=== PATIENT | female | born 1990 | race Caucasian/White ===

== ENCOUNTER 2017-10-23 21:04 | Emergency (ER) | payer MEDICAID ==
[~2017-10-23] VITALS: Ht 157.5 cm; Wt 59.0 kg
[2017-10-23] MEDS ORDERED: IBUPROFEN 600MG TABLET PO ONE (23:00)
[2017-10-24 00:25] VITALS: BP 110/67
== END 2017-10-24 00:25 | disposition home or self-care (01) ==
LOC: ER 21:04
DX: T17.228A Food in pharynx causing other injury, initial encounter (principal); X58.XXXA Exposure to other specified factors, initial encounter; Y93.89 Activity, other specified; Y92.018 Other place in single-family (private) house as the place of occurrence of the external cause
CPT/HCPCS: 42809; 70360; 81025; 99284

== ENCOUNTER 2019-05-10 16:46 | Emergency (ER) | payer MEDICAID ==
[~2019-05-10] VITALS: Ht 160 cm; Wt 53.0 kg
[2019-05-10] MEDS ORDERED: TETANUS, DIPHTHERIA, PERTUSSIS VAC/PF 0.5ML (>7YR OLD) IM ONE (17:30)
[2019-05-10] MEDS ORDERED: BACITRACIN ZINC OINT UDPKT TOP ONE (17:30)
[2019-05-10] MEDS ORDERED: LIDOCAINE HCL/EPINEPHRINE 1%-EPI 1:100,000 20 ML VIAL INFIL SCH (17:41)
[2019-05-10 19:09] VITALS: BP 114/62
== END 2019-05-10 19:10 | disposition home or self-care (01) ==
LOC: ER 16:46
DX: S61.219A Laceration without foreign body of unspecified finger without damage to nail, initial encounter (principal); X58.XXXA Exposure to other specified factors, initial encounter; Y93.89 Activity, other specified; Y92.89 Other specified places as the place of occurrence of the external cause; Y99.8 Other external cause status
CPT/HCPCS: 90471; 90715; 99283; J3490